=== PATIENT | male | born 1995 | race Caucasian/White ===

== ENCOUNTER 2021-02-13 16:59 | Emergency (ER) | payer SELFPAY ==
[2021-02-13 18:29] LABS: HEMOGLOBIN 18.7 gm/dl (14.0-17.5); RED BLOOD COUNT 5.76 M/UL (4.20-5.50); WHITE BLOOD COUNT 19.2 K/UL (4.5-11.0)
[2021-02-13 18:47] LABS: BUN/CREATININE RATIO 25 (0-10)
== END 2021-02-13 23:10 | disposition left against medical advice (07) ==
LOC: ER1 16:59
PROVIDERS: Physician Assistant
DX: R10.9 Unspecified abdominal pain (principal); R11.2 Nausea with vomiting, unspecified; R19.7 Diarrhea, unspecified; N28.81 Hypertrophy of kidney; R10.817 Generalized abdominal tenderness; Z20.822 Contact with and (suspected) exposure to COVID-19; R00.0 Tachycardia, unspecified; K21.9 Gastro-esophageal reflux disease without esophagitis; F17.210 Nicotine dependence, cigarettes, uncomplicated
CPT/HCPCS: 71045; 80053; 81001; 83605; 83690; 85025; 85610; 87040; 93005; 96374; 96375; 99284; C9113; J2405; Q9967; U0002